=== PATIENT | female | born 1955 | race Caucasian/White ===

== ENCOUNTER 2021-04-28 01:19 | Inpatient (IN) | payer OTHER ==
[~2021-04-28] VITALS: Ht 170.2 cm; Wt 96.8 kg
[2021-04-28 03:23] LABS: HEMOGLOBIN 15.2 gm/dl (12.3-15.3); RED BLOOD COUNT 4.97 M/UL (4.00-5.10); WHITE BLOOD COUNT 10.5 K/UL (4.5-11.0)
[2021-04-28 04:00] LABS: BUN/CREATININE RATIO 14 (0-10)
[2021-04-28] MEDS ORDERED: ASPIRIN EC81 MG PO (16:50)
[2021-04-28] MEDS ORDERED: CYCLOBENZAPRINE10 MG PO (16:50)
[2021-04-28] MEDS ORDERED: ZOFRAN 4 MG TAB4 MG PO (16:50)
[2021-04-28] MEDS ORDERED: HYDROCODON-ACE1 EAC6 PO (16:50)
[2021-04-29 07:34] LABS: HEMOGLOBIN 11.8 gm/dl (12.3-15.3); RED BLOOD COUNT 3.98 M/UL (4.00-5.10); WHITE BLOOD COUNT 14.7 K/UL (4.5-11.0)
[2021-04-29 07:48] LABS: BUN/CREATININE RATIO 14 (0-10)
[2021-04-30 07:57] LABS: HEMOGLOBIN 11.1 gm/dl (12.3-15.3); RED BLOOD COUNT 3.77 M/UL (4.00-5.10); WHITE BLOOD COUNT 12.9 K/UL (4.5-11.0)
[2021-04-30 08:22] LABS: BUN/CREATININE RATIO 22 (0-10)
[2021-05-01 07:18] LABS: RED BLOOD COUNT 3.8 M/UL (4.00-5.10)
[2021-05-01 07:19] LABS: WHITE BLOOD COUNT 9.2 K/UL (4.5-11.0)
[2021-05-01 07:47] LABS: BUN/CREATININE RATIO 16 (0-10)
[2021-05-01] MEDS ORDERED: AMLODIPINE BESYL5 MG PO (09:54)
[2021-05-01] MEDS ORDERED: ENOXAPARIN40 MG/0.4 SC (09:54)
== END 2021-05-01 13:25 | disposition home health service (06) | DRG 522 ==
LOC: ER1 01:19 → M/S 02:32 → CDU 02:32 → M/S 07:58
PROVIDERS: Internal Medicine; Orthopaedic Surgery; Physician Assistant; ADMIT Internal Medicine
PROC: 0SR903A Replacement of Right Hip Joint with Ceramic Synthetic Substitute, Uncemented, Open Approach (ICD-10-PCS; principal; 2021-04-28 15:16)
DX: S72.011A Unspecified intracapsular fracture of right femur, initial encounter for closed fracture (principal); D62 Acute posthemorrhagic anemia; Z20.822 Contact with and (suspected) exposure to COVID-19; I10 Essential (primary) hypertension; F17.210 Nicotine dependence, cigarettes, uncomplicated; E66.9 Obesity, unspecified; W01.0XXA Fall on same level from slipping, tripping and stumbling without subsequent striking against object, initial encounter; Y93.9 Activity, unspecified; Y92.098 Other place in other non-institutional residence as the place of occurrence of the external cause; Z90.710 Acquired absence of both cervix and uterus; Z98.891 History of uterine scar from previous surgery; Z68.33 Body mass index [BMI] 33.0-33.9, adult
CPT/HCPCS: 36415; 51702; 71045; 73501; 73502; 73552; 73700; 76000; 80048; 80053; 81001; 82550; 82553; 83540; 83550; 83735; 83874; 83880; 84484; 85025; 85027; 85610; 86850; 86900; 86901; 93005; 96374; 96375; 97110; 97110-GP-CQ; 97116; 97116-GP-CQ; 97161; 97166; 97530; 97535; 99285; J0171; J0690; J1100; J1170; J1650; J2001; J2250; J2270; J2405; J2704; J2765; J2795; J3010; J3370; J7030; J7050; J7120; U0002